=== PATIENT | female | born 1985 | race African-American/Black ===

== ENCOUNTER 2023-07-11 08:58 | Emergency (ER) | payer SELFPAY ==
[2023-07-11 09:11] VITALS: BP 138/103; PULSE 96; RESP 18; TEMP 36.4; O2SAT 100
[2023-07-11] MEDS: KETOROLAC (*BKC) 60 MG/2 ML VIAL IM (09:35)
--- NOTE | 2023-07-11 09:55 | ED.BACK ---
HPI - Back Pain/Injury General Chief Complaint: Back Pain/Injury Stated Complaint: LOWER BACK PAIN RADIATING DOWN R LEG Time Seen by Provider: 07/11/23 09:15 History of Present Illness HPI Narrative: Patient is a 38-year-old female who presents ER with right-sided low back pain. Ongoing for 4 days. Aching and radiates down the right leg. No numbness or tingling to the groin or lower extremity. No known trauma. She has not tried any pain medications. Denies fevers or chills or sweats. Related Data Allergies Allergy/AdvReac Type Severity Reaction Status Date / Time No Known Allergies Allergy Verified 07/11/23 09:01 Review of Systems Constitutional: Constitutional: Reports no additional constitutional complaints Musculoskeletal: Musculoskeletal: Reports back pain, Denies myalgias, Denies arthralgias and Denies joint swelling Integumentary/Breasts: Skin/Breast: Reports system reviewed and no additional complaints, except as docu Neurologic: Reports system reviewed and no additional complaints, except as documented PMFSH Past Medical History Medical History (Updated 07/11/23 @ 10:00 by Modesto Wilson MD) Healthy female adult Exam Narrative: GENERAL: Well-appearing, well-nourished, and in no acute distress. HEAD: Normocephalic, atraumatic. BACK: no midline tenderness of the T/L-spine. There is right paraspinal tenderness in low lumbar region into the SI joint. EXTREMITIES: Normal range of motion. No edema. SKIN: Warm, dry, no rash. NEURO: Alert and oriented x3. PSYCH: Normal mood and affect. Course Course Emergency Course: Discussed conservative treatment with anti-inflammatory medication and muscle relaxers. One dose of Toradol here. No trauma so no imaging to be performed patient verbalized understanding of this. Vital Signs Vital signs: Vital Signs Temperature 97.6 F 07/11/23 09:11 Pulse Rate 96 07/11/23 09:11 Respiratory Rate 18 07/11/23 09:11 Blood Pressure 138/103 H 07/11/23 09:11 Pulse Oximetry 100 07/11/23 09:11 Oxygen Delivery Room Air 07/11/23 09:11 Temperature 97.6 F 07/11/23 09:11 Pulse Rate 96 07/11/23 09:11 Respiratory Rate 18 07/11/23 09:11 Blood Pressure 138/103 H 07/11/23 09:11 Pulse Oximetry 100 07/11/23 09:11 Oxygen Delivery Room Air 07/11/23 09:11 Discharge Plan Discharge Clinical Impression: Sciatica Patient Disposition: Home, Self-Care Condition: Stable Instructions: Sciatica (ED) Additional Instructions: Please return to the emergency department if you develop severe pain that is not controlled by pain medications or if you are unable to walk because of pain or weakness. Return to the emergency department immediately if you develop fevers, loss of bowel or bladder control (dribbling of urine or having accidents you wouldn't normally have), inability to urinate, numbness of your genital or anal area, or weakness/numbness of your legs or arms as these could all be signs of a serious medical emergency. Prescriptions: New cyclobenzaprine 10 mg tablet 10 mg PO TID PRN (Reason: muscle spasm) Qty: 20 0RF naproxen 375 mg tablet 375 mg PO BID Qty: 14 0RF Follow-up/Referrals: Jermaine Oliveira MD [Physician] - 1 Week PHYSICIAN NOT ON STAFF,NONSTAFF [Primary Care Provider] -
== END 2023-07-11 10:06 | disposition home or self-care (01) ==
PROVIDERS: Emergency Provider Emergency Medicine
DX: M54.41 Lumbago with sciatica, right side (principal)
CPT/HCPCS: 96372; 99283; J1885